=== PATIENT | female | born 1975 | race Caucasian/White ===

== ENCOUNTER 2021-04-28 08:28 | Day surgery (SDC) | payer BC ==
[~2021-04-28] VITALS: Ht 170.2 cm; Wt 55.3 kg
[~2021-04-28 08:28] MED LIST changes: +LR 1,000 ML IV ONE
[2021-04-28] MEDS ORDERED: propofoL 200 MG/20 ML VIAL As Ordered ONE (09:36)
[2021-04-28] MEDS ORDERED: LIDOCAINE 2% 100MG/5ML SDV (FOR ANES.) As Ordered ONE (09:36)
[2021-04-28] MEDS ORDERED: fentaNYL 250 MCG/5 ML INJECTION As Ordered ONE (09:36)
[2021-04-28] MEDS ORDERED: ROCURONIUM BROMIDE 50 MG/5 ML VIAL As Ordered ONE (09:36)
[2021-04-28] MEDS ORDERED: MIDAZOLAM INJ 2MG/2ML VIAL (J2250 PER 1MG) As Ordered ONE (09:36)
[2021-04-28] MEDS ORDERED: OXYMETAZOLINE 0.05% NASAL SPRAY (AFRIN) As Ordered ONE (09:43)
[2021-04-28] MEDS ORDERED: LIDOCAINE W/EPINEPHRINE 1% 20ML VIAL As Ordered ONE (09:43)
[2021-04-28] MEDS ORDERED: METHYLENE BLUE 0.5% (5MG/ML) 10 ML AMP (PROVAYBLUE) As Ordered ONE (09:43)
[2021-04-28] MEDS ORDERED: COCAINE 4% 4ML NASAL SOLUTION BTL As Ordered ONE (09:44)
[2021-04-28] MEDS ORDERED: ONDANSETRON 4MG/2ML VIAL As Ordered ONE (11:37)
[2021-04-28] MEDS ORDERED: ACETAMINOPHEN 1000MG 100ML IV BTL (OFIRMEV) (J0131 PER 10MG) As Ordered ONE (11:37)
[2021-04-28] MEDS ORDERED: KETOROLAC 60MG 2ML VIAL As Ordered ONE (11:37)
[2021-04-28] MEDS ORDERED: dexameTHASONE 4 MG/ML 1ML VIAL (J1100 PER 1MG) As Ordered ONE (11:37)
[2021-04-28] MEDS ORDERED: METOCLOPRAMIDE INJ 10MG/2ML VIAL (J2765 PER 1) As Ordered ONE (11:37)
[2021-04-28] MEDS ORDERED: SUGAMMADEX SODIUM 500 MG/5 ML VIAL (BRIDION) As Ordered ONE (11:47)
[2021-04-28] MEDS ORDERED: LR 1,000 ML IV SCH ×2 (13:05)
[2021-04-28] MEDS ORDERED: ONDANSETRON 4MG/2ML VIAL IV PRN ×2 (13:05→13:10)
[2021-04-28] MEDS ORDERED: METOCLOPRAMIDE INJ 10MG/2ML VIAL (J2765 PER 1) IV PRN (13:05)
[2021-04-28] MEDS ORDERED: fentaNYL 100 MCG/2 ML INJECTION IV PRN (13:05)
[2021-04-28] MEDS ORDERED: PERCOCET 5MG/325MG TAB PO PRN (13:05)
[2021-04-28] MEDS ORDERED: ANEXSIA, NORCO 7.5MG/325MG TABLET(HYDROCODONE/APAP) PO PRN (13:10)
[2021-04-28] MEDS ORDERED: MORPHINE 10 MG/ML 1ML VIAL (J2270) IV PRN (13:10)
[2021-04-28] MEDS ORDERED: SCOPOLAMINE 1MG TRANSDERMAL PATCH TOP ONE (14:30)
[2021-04-28 15:05] VITALS: BP 109/58
== END 2021-04-28 15:05 | disposition home or self-care (01) ==
LOC: M SDC 08:28 → EDUNIT# 08:45 → M SDC 15:05
PROVIDERS: ATTEND Otolaryngology
DX: J32.9 Chronic sinusitis, unspecified (principal); T88.4XXD Failed or difficult intubation, subsequent encounter; Z79.899 Other long term (current) drug therapy
CPT/HCPCS: 30999; 31255; 31267; 61782; 88305; C9046; J0131; J1100; J1885; J2250; J2405; J2765; J3010; Q9968

== ENCOUNTER → 2021-04-28 | Outpatient (CLI) | payer BC ==
[~2021-04-28] MED LIST: ACET1TAB55 PO; IBUP200C29 PO
== END ==
LOC: M RAD 08:09
PROVIDERS: ATTEND Otolaryngology
DX: J32.9 Chronic sinusitis, unspecified (principal)